=== PATIENT | male | born 1995 | race African-American/Black ===

== ENCOUNTER 2018-06-19 11:04 | Emergency (ER) | payer SELFPAY | END 2018-06-19 11:41 | disposition home or self-care (01) | LOC: ERS 11:04 | DX: M79.662 Pain in left lower leg (principal) | CPT/HCPCS: 99283 ==

== ENCOUNTER 2018-06-20 17:37 | Emergency (ER) | payer SELFPAY | END 2018-06-20 19:10 | disposition home or self-care (01) | LOC: ERS 17:37 | DX: M79.644 Pain in right finger(s) (principal) | CPT/HCPCS: 36416; 99283 ==